=== PATIENT | male | born 2005 | race Caucasian/White ===

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

== ENCOUNTER 2024-01-26 07:00 | Emergency (ER) | payer OTHER ==
[~2024-01-26] VITALS: Ht 172.7 cm; Wt 86.4 kg
[2024-01-26 07:03] VITALS: TEMP 98.7
[2024-01-26] MEDS: SODIUM CHLORIDE 0.9% 250 ML IRRIG SOLUTION BOTTLE IRRIG ONE (07:37)
[2024-01-26] MEDS: BACITRACIN 0.9 GM PACKET OINTMENT TP ONE (07:37)
[2024-01-26] MEDS: LIDOCAINE 1% 10 ML VIAL ID ONE (07:38)
[2024-01-26] MEDS: PERTUSS(ACELL),DIPH,TET/PF 0.5 ML SYRINGE [ADULT] IM. ONE (07:38)
[2024-01-26 08:15] VITALS: BP 126/61; PULSE 75; RESP 16; O2SAT 96
== END 2024-01-26 08:28 | disposition home or self-care (01) ==
LOC: EMS 07:00
DX: S01.112A Laceration without foreign body of left eyelid and periocular area, initial encounter (principal); Y04.8XXA Assault by other bodily force, initial encounter; Y93.89 Activity, other specified; Y92.89 Other specified places as the place of occurrence of the external cause; Y99.8 Other external cause status
CPT/HCPCS: 99283; 90715; 90471; 12011; J3490

== ENCOUNTER 2024-01-30 10:44 | Emergency (ER) | payer OTHER ==
[~2024-01-30] VITALS: Ht 175.3 cm; Wt 86.4 kg
[2024-01-30 10:46] VITALS: BP 113/63; PULSE 64; RESP 16; TEMP 98; O2SAT 100
== END 2024-01-30 11:15 | disposition home or self-care (01) ==
LOC: EMS 10:44
DX: S00.80XD Unspecified superficial injury of other part of head, subsequent encounter (principal); Z48.02 Encounter for removal of sutures; X58.XXXD Exposure to other specified factors, subsequent encounter
CPT/HCPCS: 99281; Z7502